=== PATIENT | male | born 2000 | race Two or more races ===

== ENCOUNTER 2023-11-01 17:31 | Emergency (ER) | payer OTHER ==
[~2023-11-01] VITALS: Ht 190.5 cm; Wt 163.0 kg
[2023-11-01 18:58] VITALS: PULSE 100; RESP 19; TEMP 98; O2SAT 97
[2023-11-01 19:06] VITALS: BP 160/115
[2023-11-01] MEDS: ACETAMINOPHEN 325 MG TAB PO ONE (19:23)
[2023-11-01] MEDS ORDERED: ACET500T58 PO (19:30)
[2023-11-01] MEDS ORDERED: CYCL-837 PO (19:30)
== END 2023-11-01 21:14 | disposition home or self-care (01) ==
LOC: ER 18:07
DX: S16.1XXA Strain of muscle, fascia and tendon at neck level, initial encounter (principal); S39.012A Strain of muscle, fascia and tendon of lower back, initial encounter; S09.90XA Unspecified injury of head, initial encounter; Z79.899 Other long term (current) drug therapy; V63.5XXA Driver of heavy transport vehicle injured in collision with car, pick-up truck or van in traffic accident, initial encounter; Y93.89 Activity, other specified; Y92.411 Interstate highway as the place of occurrence of the external cause; Y99.0 Civilian activity done for income or pay
CPT/HCPCS: 70450; 72100; 72125